=== PATIENT | female | born 1990 | race African-American/Black ===

== ENCOUNTER 2017-10-17 02:13 | Emergency (ER) | payer MEDICAID ==
[~2017-10-17] VITALS: Ht 172.7 cm; Wt 83.5 kg
[2017-10-17 02:35] VITALS: Ht 172.7 cm; Wt 83.5 kg
[2017-10-17 06:39] LABS: microscopic required? NO
[2017-10-17 06:53] LABS: urine erythrocyte NEGATIVE (NEGATIVE)
[2017-10-17 06:55] LABS: CALCIUM 8.2 mg/dL (8.5-10.1); CARBON DIOXIDE 26.6 mmol/L (21-32); CHLORIDE SERUM 102 mmol/L (98-107); CREATININE SERUM 0.7 mg/dL (0.6-1.0); GFR1 > 60 mL/min; GLUCOSE SERUM 82 mg/dL (74-106); POTASSIUM SERUM 3.8 mmol/L (3.5-5.1); SODIUM SERUM 135 mmol/L (136-145)
[2017-10-17 07:01] LABS: ALKALINE PHOSPHATASE 65 U/L (46-116); ALT/SGPT 63 U/L (14-59); AST/SGOT 48 U/L (15-37); BILIRUBIN TOTAL 0.1 mg/dL (0.20-1.00); LIPASE 172 IU/L (73-393); TOTAL PROTEIN, SERUM 7.1 g/dL (6.4-8.2)
[2017-10-17 07:03] LABS: ALBUMIN 2.6 g/dL (3.4-5.0)
[2017-10-17 07:16] LABS: AMPHETAMINE QUAL UR NONE DETECTED (NEG <=1000)
[2017-10-17 09:48] VITALS: BP 133/70
== END 2017-10-17 09:48 | disposition home or self-care (01) ==
LOC: ED 02:13
PROVIDERS: Emergency Medicine
DX: O26.892 Other specified pregnancy related conditions, second trimester (principal); R06.02 Shortness of breath; Z3A.19 19 weeks gestation of pregnancy
CPT/HCPCS: 36600; 83880; 85378; 87804; Q0092

== ENCOUNTER 2018-01-22 14:10 | Emergency (ER) | payer MEDICAID ==
[~2018-01-22] VITALS: Ht 172.7 cm; Wt 95.5 kg
[2018-01-22 14:40] VITALS: Ht 172.7 cm; Wt 95.5 kg
[2018-01-22 16:02] VITALS: BP 131/82
== END 2018-01-22 16:02 | disposition home or self-care (01) ==
LOC: ED 14:10
DX: O99.343 Other mental disorders complicating pregnancy, third trimester (principal); F45.8 Other somatoform disorders; R06.02 Shortness of breath; F41.9 Anxiety disorder, unspecified; Z3A.28 28 weeks gestation of pregnancy

== ENCOUNTER 2018-02-07 19:37 | Emergency (ER) | payer MEDICAID ==
[~2018-02-07] VITALS: Ht 170.2 cm; Wt 95.2 kg
[2018-02-07 20:00] VITALS: BP 126/86; Ht 170.2 cm; Wt 95.2 kg
== END 2018-02-07 20:32 | disposition left against medical advice (07) ==
LOC: ED 19:37
DX: Z53.21 Procedure and treatment not carried out due to patient leaving prior to being seen by health care provider (principal)

== ENCOUNTER 2018-02-09 19:33 | Emergency (ER) | payer MEDICAID ==
[~2018-02-09] VITALS: Ht 172.7 cm; Wt 96.6 kg
[2018-02-09 19:45] VITALS: Ht 172.7 cm; Wt 96.6 kg
[2018-02-09 20:40] VITALS: BP 120/71
== END 2018-02-09 20:40 | disposition home or self-care (01) ==
LOC: ED 19:33
DX: O26.899 Other specified pregnancy related conditions, unspecified trimester (principal); O26.86 Pruritic urticarial papules and plaques of pregnancy (PUPPP)

== ENCOUNTER 2019-03-12 19:07 | Emergency (ER) | payer OTHER ==
[~2019-03-12] VITALS: Ht 170.2 cm; Wt 80.3 kg
[2019-03-12 19:13] VITALS: Ht 170.2 cm; Wt 80.3 kg
[2019-03-12 19:40] VITALS: BP 118/78
== END 2019-03-12 19:40 | disposition home or self-care (01) ==
LOC: ED 19:07
DX: H60.92 Unspecified otitis externa, left ear (principal)

== ENCOUNTER 2019-03-15 14:28 | Emergency (ER) | payer OTHER | END 2019-03-15 14:45 | disposition left against medical advice (07) | LOC: ED 14:28 | DX: Z53.21 Procedure and treatment not carried out due to patient leaving prior to being seen by health care provider (principal) ==

== ENCOUNTER 2019-03-19 21:12 | Emergency (ER) | payer OTHER ==
[~2019-03-19] VITALS: Ht 170.2 cm; Wt 82.7 kg
[2019-03-19 21:20] VITALS: Ht 170.2 cm; Wt 82.7 kg
[2019-03-19 22:01] LABS: BASOPHIL % 0.5 % (0-2); PLATELET COUNT 322 x10^3mcL (130-400)
[2019-03-19 22:14] LABS: CALCIUM 8.9 mg/dL (8.5-10.1); CARBON DIOXIDE 24.3 mmol/L (21-32); CHLORIDE SERUM 105 mmol/L (98-107); CREATININE SERUM 0.9 mg/dL (0.6-1.0); GFR1 > 60 mL/min; GLUCOSE SERUM 78 mg/dL (74-106); POTASSIUM SERUM 3.7 mmol/L (3.5-5.1); SODIUM SERUM 138 mmol/L (136-145)
[2019-03-19 22:20] LABS: ALKALINE PHOSPHATASE 67 U/L (46-116); ALT/SGPT 15 U/L (14-59); AST/SGOT 9 U/L (15-37); TOTAL PROTEIN, SERUM 7.1 g/dL (6.4-8.2)
[2019-03-19 22:21] LABS: ALBUMIN 2.8 g/dL (3.4-5.0); RED CELL DISTRIBUTION WIDTH 17.6 % (11.5-14.5)
[2019-03-19 23:36] VITALS: BP 129/73
== END 2019-03-19 23:36 | disposition home or self-care (01) ==
LOC: ED 21:12
PROVIDERS: Emergency Medicine
DX: O26.891 Other specified pregnancy related conditions, first trimester (principal); O99.711 Diseases of the skin and subcutaneous tissue complicating pregnancy, first trimester; R10.30 Lower abdominal pain, unspecified; R21 Rash and other nonspecific skin eruption; Z3A.12 12 weeks gestation of pregnancy
CPT/HCPCS: 36415

== ENCOUNTER 2019-03-20 20:27 | Emergency (ER) | payer OTHER ==
[~2019-03-20] VITALS: Ht 170.2 cm; Wt 81.6 kg
[2019-03-20 21:03] VITALS: Ht 170.2 cm; Wt 81.6 kg
[2019-03-20 22:26] VITALS: BP 119/75
== END 2019-03-20 22:26 | disposition home or self-care (01) ==
LOC: ED 20:27
DX: O26.891 Other specified pregnancy related conditions, first trimester (principal); B35.6 Tinea cruris; O99.011 Anemia complicating pregnancy, first trimester; Z3A.12 12 weeks gestation of pregnancy; Z86.2 Personal history of diseases of the blood and blood-forming organs and certain disorders involving the immune mechanism

== ENCOUNTER 2019-03-21 22:19 | Emergency (ER) | payer OTHER ==
[~2019-03-21] VITALS: Ht 170.2 cm; Wt 82.1 kg
[2019-03-21 22:23] VITALS: BP 122/87; Ht 170.2 cm; Wt 82.1 kg
[2019-03-21 23:50] LABS: BASOPHIL % 0.2 % (0-2); PLATELET COUNT 331 x10^3mcL (130-400)
[2019-03-21 23:52] LABS: RED CELL DISTRIBUTION WIDTH 17.8 % (11.5-14.5)
[2019-03-21 23:58] LABS: CALCIUM 8.6 mg/dL (8.5-10.1); CHLORIDE SERUM 103 mmol/L (98-107); CREATININE SERUM 0.7 mg/dL (0.6-1.0); GFR1 > 60 mL/min; GLUCOSE SERUM 91 mg/dL (74-106); POTASSIUM SERUM 3.7 mmol/L (3.5-5.1); SODIUM SERUM 139 mmol/L (136-145)
[2019-03-22 00:03] LABS: ALKALINE PHOSPHATASE 62 U/L (46-116); ALT/SGPT 18 U/L (14-59); AST/SGOT 12 U/L (15-37); BILIRUBIN TOTAL 0.1 mg/dL (0.20-1.00); C REACTIVE PROTEIN 1.3 mg/dL (<=0.9); TOTAL PROTEIN, SERUM 7.3 g/dL (6.4-8.2)
[2019-03-22 00:04] LABS: ALBUMIN 2.9 g/dL (3.4-5.0)
[2019-03-22 00:42] LABS: ERYTHROCYTE SED RATE 36 mm/hr (0-20)
== END 2019-03-22 00:51 | disposition home or self-care (01) ==
LOC: ED 22:19
PROVIDERS: Emergency Medicine
DX: O26.891 Other specified pregnancy related conditions, first trimester (principal); L30.4 Erythema intertrigo; O99.011 Anemia complicating pregnancy, first trimester; Z3A.12 12 weeks gestation of pregnancy; Z86.2 Personal history of diseases of the blood and blood-forming organs and certain disorders involving the immune mechanism
CPT/HCPCS: 36415

== ENCOUNTER 2019-05-06 09:32 | Emergency (ER) | payer OTHER ==
[~2019-05-06] VITALS: Ht 170.2 cm; Wt 87.5 kg
[2019-05-06 09:38] VITALS: Ht 170.2 cm; Wt 87.5 kg
[2019-05-06 11:27] VITALS: BP 123/75
== END 2019-05-06 11:27 | disposition home or self-care (01) ==
LOC: ED 09:32
DX: O99.511 Diseases of the respiratory system complicating pregnancy, first trimester (principal); J20.8 Acute bronchitis due to other specified organisms

== ENCOUNTER 2019-09-02 08:30 | Emergency (ER) | payer OTHER ==
[~2019-09-02] VITALS: Ht 170.2 cm; Wt 99.6 kg
[2019-09-02 08:50] VITALS: Ht 170.2 cm; Wt 99.6 kg
[2019-09-02 10:08] VITALS: BP 123/83
== END 2019-09-02 10:08 | disposition home or self-care (01) ==
LOC: ED 08:30
DX: O36.8130 Decreased fetal movements, third trimester, not applicable or unspecified (principal); O23.43 Unspecified infection of urinary tract in pregnancy, third trimester; Z3A.36 36 weeks gestation of pregnancy